=== PATIENT | female | born 1980 | race Caucasian/White ===

== ENCOUNTER → 2018-09-05 10:25 | Outpatient (CLI) | payer OTHER, SELFPAY ==
--- NOTE | 2018-09-05 10:28 | US_ITS ---
US transvaginal HISTORY: Dysfunctional uterine bleeding ITS.REASON: pelvic pain ORDERING PHYSICIAN: Ramiro Patel MD PATIENT AGE: 38 years Comparison: None FINDINGS: The uterus is 8 x 4.8 x 5.5 cm with a combined endometrial thickness of 6 mm. No mass is evident. There are bilateral tubal occlusion devices/Essure devices present. The left ovary is 2.6 x 2 cm and contains a 1.4 cm cyst. The right ovary is 3 x 2 cm and has an unremarkable appearance. No cul-de-sac fluid is apparent. There are small nabothian cyst IMPRESSION: Unremarkable pelvic ultrasound. Bilateral Essure device is noted
== END ==
PROVIDERS: PCP Nurse Practitioner Family; Visit Provider Obstetrics & Gynecology
DX: R10.2 Pelvic and perineal pain (principal)
CPT/HCPCS: 76830

== ENCOUNTER → 2018-10-01 09:52 | Outpatient (CLI) | payer OTHER, SELFPAY ==
--- NOTE | 2018-10-01 09:54 | MM_ITS ---
MM Dig SC mamm implant BI CAD ORDERING PHYSICIAN : Ramiro Patel MD PATIENT AGE: 38 years GENDER: Female COMPARISON: Appears to be a Baseline mammogram Study. No previous mammogram listed. . TECHNIQUE: Routine screening mammogram Ghazala technique utilized. CC & MLO images were obtained of the breast tissue overlying implant, as well as a second set of images including the breast implant. Mammography is inherently limited due to the implants is a could obscure areas of breast R2 CAD reviewed. HISTORY. Bilateral breast implants. No new complaints. Patient reports history of skin cancer.. Essure contraception . Family history. Noncontributory FINDINGS: Small dense breast bilaterally overlying the bilateral breast implants.. Mammography is decreased sensitivity due to the dense breast tissue as well as underlying implants. However I see no discrete interval change. RIGHT BREAST:No suspicious areas. No areas of significant concern When all images are reviewed there is no one area of significant concern. No unique or discrete suspicious densities. Areas on one view dissipate on the other. Minimal amount of breast tissue overlying the implant bilateral. LEFT BREAST:No suspicious areas. No areas of significant concern When all images are reviewed there is no one area of significant concern. No unique or discrete suspicious densities. Areas on one view dissipate on the other. Minimal amount of breast tissue overlying the implant bilateral. ======IMPRESSION: No areas of significant concern. Bilateral follow-up in one year.: Bilateral breast implants, as well as dense, minimal tissue overlying the implants bilateral. These features do decreases sensitivity of mammography in this patient.However we see no unique or suspicious area of concern. Provider & Self breast exam may be of benefit to compliment mammography, particularly in in this setting. BI-RADS Category: 2 Benign Finding(s) RECOMMENDED FOLLOW-UP: 1YR 1 YEAR FOLLOW-UP (A letter has been sent to the patient regarding results of the study.)
== END ==
PROVIDERS: PCP Nurse Practitioner Family; Visit Provider Obstetrics & Gynecology
DX: Z12.31 Encounter for screening mammogram for malignant neoplasm of breast (principal)
CPT/HCPCS: 77067

== ENCOUNTER 2020-11-25 15:44 | Emergency (ER) | payer OTHER, SELFPAY ==
[2020-11-25 18:00] VITALS: BP 125/87; PULSE 67; RESP 18; TEMP 36.6; O2SAT 100; BMI 23.3
--- NOTE | 2020-11-25 18:24 | HMH.EDUTC ---
[facility] [place] Clinical Impression: Viral syndrome, Exposure to COVID-19 virus Disposition: Home, Self-Care Condition on Discharge: Good Instructions: DI for COVID-19 (Suspected or Confirmed ), Preventing the Spread of Coronavirus Discharge Instructions Additional Instructions: Drink plenty of fluids. Take tylenol for pain or fever. Return if you begin to have difficulty breathing. Follow up with your regular doctor. GO TO THE ER FOR ANY WORSENING SYMPTOMS Quarantine until you know the results of your covid-19 test. If it is positive, the health department should call you and give you further instructions about your length of Quarantine and other things. Notify your school or workplace of your results and follow their instructions regarding return to work/school. The cough medication (promethazine dm) will make you drowsy, so don't drive or operate heavy machinery after taking it. Prescriptions: Promethazine/Dextromethorphan [Promethazine-Dm Syrup] 5 ml PO Q6HP PRN #240 syrup PRN Reason: Cough Transmission Status: Received by [facility] Ondansetron [Zofran 4mg ODT] 4 mg PO Q8HP PRN #20 tab.rapdis PRN Reason: Nausea Transmission Status: Received by [facility] Benzonatate [Tessalon Perle 100mg Cap] 100 mg PO TIDP PRN #30 cap PRN Reason: Cough Transmission Status: Received by [facility] Azithromycin [Z-Carmelo 250mg Tab*] 250 mg PO UD DOSE PK #6 tab Transmission Status: Received by [facility] Referrals: Anita Armstrong APRN [Primary Care Provider] - Time of Disposition: 18:27 Medical Decision Making - Medical Records Medical records reviewed: No: I reviewed the patient's medical records. - Alec Inquiry Pt receiving controlled substance: No Vital Signs: 11/25/20 18:00 11/25/20 18:25 Temperature 97.9 F 97.9 F Temperature Source Oral Pulse Rate 67 Pulse Rate [Right Brachial] 67 Respiratory Rate 18 18 Blood Pressure 125/87 Blood Pressure [Right Arm] 125/87 Blood Pressure Mean [Right Arm] 99 Blood Pressure Source [Right Arm] Automatic Cuff Blood Pressure Position [Right Arm] Sitting 02 Sat by Pulse Oximetry 100 Oxygen Delivery Method Room Air - Lab Data Lab results reviewed: Yes: I reviewed the patient's lab results. [facility] [place] - General Stated complaint: covid symptoms/test Time Seen by Provider: 11/25/20 18:24 Mode of Arrival: Ambulatory Source of Information: Patient Limitations: No Limitations Description of Symptoms (Recalled from Triage Doc. by RN): COVID TEST D/T EXPOSURE. C/O NAUSEA HEENT Symptoms (Recalled from RN notes): No Resp Symptoms (Recalled from RN notes): No Skin Symptoms (Recalled from RN notes): No MS Symptoms (Recalled from RN notes): No Functional Status (Recalled from RN notes): WNL; - History of Present Illness Provider Complaint: She states that for the past 2 days she has had cough, congestion, scratchy sore throat, and body aches. She was exposed to covid-19 last week. - Related Data Home Medications Medication Instructions Recorded Confirmed buprenorphine 8 mg-naloxone 2 mg 1 tab SUBLINGUAL DAILY tab 09/01/18 09/22/19 sublingual tablet amoxicillin 875 mg-potassium 1 tab PO BID 09/22/19 09/22/19 clavulanate 125 mg tablet multivitamin 1 cap PO DAILY 09/22/19 09/22/19 Previous Rx's Medication Instructions Recorded Azithromycin [Z-Carmelo 250mg Tab*] 250 mg PO UD DOSE PK #6 tab 11/25/20 Benzonatate [Tessalon Perle 100mg 100 mg PO TIDP PRN #30 cap 11/25/20 Cap] Ondansetron [Zofran 4mg ODT] 4 mg PO Q8HP PRN #20 tab.rapdis 11/25/20 Promethazine/Dextromethorphan 5 ml PO Q6HP PRN #240 syrup 11/25/20 [Promethazine-Dm Syrup] Allergies Allergy/AdvReac Type Severity Reaction Status Date / Time No Known Allergies Allergy Verified 09/22/19 11:10 - Worker's Comp Is this a Worker's Comp case?: No [facility] History - Hepatitis A Screen Drug use history?: No High
[2020-11-25 18:25] VITALS: BP 125/87; PULSE 67; RESP 18; TEMP 36.6; O2SAT 100
--- NOTE | 2020-11-26 11:31 | PC.NURSE ---
Spoke with pt and notified of positive COVID results.
== END 2020-11-25 18:35 | disposition home or self-care (01) ==
PROVIDERS: Emergency Provider Nurse Practitioner Family; PCP Nurse Practitioner
DX: U07.1 COVID-19 (principal)
CPT/HCPCS: 99202; G0463; U0003

== ENCOUNTER 2025-03-17 08:07 | Outpatient (CLI) | payer OTHER, SELFPAY ==
--- NOTE | 2025-03-17 08:30 | US_ITS ---
FINAL REPORT TECHNIQUE: Multiple transverse and longitudinal images CLINICAL HISTORY: right upper quadrant abdominal pain COMPARISON: none FINDINGS: The gallbladder shows a few tiny gallstones near the gallbladder fundus. No findings of acute cholecystitis. No biliary ductal dilatation is appreciated. No fluid collections are seen. There is fatty change of the liver. Limited portions of the right kidney are unremarkable. Pancreas is largely obscured. IMPRESSION: Uncomplicated cholelithiasis. Fatty liver. Reviewed, Interpreted and Dictated by Krys Gleason MD Transcribed by Maria Del Rosario Moore Authenticated and [facility]
== END 2025-03-17 23:59 | disposition home or self-care (01) ==
LOC: RAD 08:09
PROVIDERS: PCP Nurse Practitioner; Visit Provider Nurse Practitioner Obstetrics & Gynecology
DX: K80.20 Calculus of gallbladder without cholecystitis without obstruction (principal); K76.0 Fatty (change of) liver, not elsewhere classified
CPT/HCPCS: 76705